=== PATIENT | male | born 1955 | race Caucasian/White ===

== ENCOUNTER 2023-02-10 07:47 | Day surgery (SDC) | payer MEDICARE, OTHER ==
[~2023-02-10 07:47] MED LIST: Lactated Ringers 1,000 ML IV SCH; Midazolam 1 MG/ML 2 ML SDV ONE; Propofol 200 MG/20 ML SDV ONE; fentaNYL 50 MCG/ML SDV ONE
[2023-02-10] MEDS ORDERED: Propofol 200 MG/20 ML SDV ONE (08:25)
== END 2023-02-10 11:29 | disposition home or self-care (01) ==
LOC: JP.SDS 07:47
PROVIDERS: ATTEND Student in an Organized Health Care Education/Training Program
DX: Z12.11 Encounter for screening for malignant neoplasm of colon (principal); K57.30 Diverticulosis of large intestine without perforation or abscess without bleeding; I25.10 Atherosclerotic heart disease of native coronary artery without angina pectoris; I49.9 Cardiac arrhythmia, unspecified
CPT/HCPCS: G0121; J2250; J2704; J3010; J7120

== ENCOUNTER 2023-11-24 09:18 | Emergency (ER) | payer MEDICARE ==
[2023-11-24] MEDS: Ketorolac 30 MG/ML SDV IM ONE (11:13)
== END 2023-11-24 11:20 | disposition home or self-care (01) ==
LOC: JP.ED 09:18
DX: S76.312A Strain of muscle, fascia and tendon of the posterior muscle group at thigh level, left thigh, initial encounter (principal); Z86.16 Personal history of COVID-19; X50.0XXA Overexertion from strenuous movement or load, initial encounter; Y93.89 Activity, other specified; Z79.899 Other long term (current) drug therapy
CPT/HCPCS: 96372; 99283; J1885

== ENCOUNTER 2024-01-26 08:49 | Emergency (ER) | payer MEDICARE | END 2024-01-26 09:44 | disposition home or self-care (01) | LOC: JP.ED 08:49 | DX: M54.50 Low back pain, unspecified (principal); Z90.49 Acquired absence of other specified parts of digestive tract; Z79.899 Other long term (current) drug therapy | CPT/HCPCS: 99283 ==

== ENCOUNTER 2024-01-28 08:10 | Emergency (ER) | payer MEDICARE ==
[2024-01-28] MEDS: HYDROmorphone 1 MG/ML Syringe IM ONE (09:35)
[2024-01-28] MEDS: Ketorolac 30 MG/ML SDV IM ONE (10:39)
== END 2024-01-28 10:53 | disposition home or self-care (01) ==
LOC: JP.ED 08:10
DX: M54.40 Lumbago with sciatica, unspecified side (principal); Z79.899 Other long term (current) drug therapy; Z90.49 Acquired absence of other specified parts of digestive tract
CPT/HCPCS: 96372; 99283; 99284; J1170; J1885